=== PATIENT | male | born 1995 | race Caucasian/White ===

== ENCOUNTER 2021-03-14 17:01 | Emergency (ER) | payer MEDICAID ==
[~2021-03-14] VITALS: Ht 170.2 cm; Wt 81.8 kg
[2021-03-14 19:10] VITALS: BP 155/86
== END 2021-03-14 20:08 ==
LOC: EMS 17:05
DX: T18.2XXA Foreign body in stomach, initial encounter (principal); F15.10 Other stimulant abuse, uncomplicated; X58.XXXA Exposure to other specified factors, initial encounter; Y93.89 Activity, other specified; Y92.89 Other specified places as the place of occurrence of the external cause; Y99.8 Other external cause status
CPT/HCPCS: 74022; 93005; 99284; Z7502

== ENCOUNTER 2022-01-27 12:23 | Emergency (ER) | payer MEDICAID, OTHER | END 2022-01-27 14:07 | disposition left against medical advice (07) | LOC: EMS 13:02 | DX: Z53.21 Procedure and treatment not carried out due to patient leaving prior to being seen by health care provider (principal) ==